=== PATIENT | male | born 1985 | race Caucasian/White ===

== ENCOUNTER 2017-09-30 15:01 | Emergency (ER) | payer SELFPAY ==
[2017-09-30 15:01] VITALS: BP 139/73; PULSE 89; RESP 18; TEMP 37; O2SAT 96; BMI 32.3
--- NOTE | 2017-09-30 15:13 | ED.DCSUM_ITS ---
- ER Visit Summary Date of Service: 09/30/17 Chief Complaint: Hemorrhoid History of Present Illness: The patient is a 32 M resents to the emergency department with hemorrhoid. Patient states that he noticed yesterday. He states he went to work he was lifting heavy boxes. When he got home it was more painful. He states today, he noticed that it was a hard blue bump. States he has never had one before. He denies any fevers or chills. Denies any trouble moving his bowels. He denies any other systemic symptoms. He has had no blood in his bowel movements. He has no history of inflammatory bowel disease. Physical Examination: Vital signs reviewed General: Well-nourished, well-developed Head: Normocephalic, atraumatic Eyes: Pupils equal and reactive, extraocular muscles intact Neck, supple, no lymphadenopathy Heart: Regular rate and rhythm Respiratory: No distress, clear bilaterally Abdomen: Soft, nontender, nondistended, no peritoneal signs Rectal exam: Patient has thrombosed hemorrhoid at the 3 o'clock position. There is no evidence of abscess. No active bleeding. Back: Nontender Extremities: Nontender, no edema, no cords Skin: Normal color no rash Neuro: Alert and oriented, no focal or lateralizing deficits Test Results: [] Emergency Department Course and Treatment: The patient does have evidence of a thrombosed hemorrhoid. I did feel that this would need incised and drained. The wound was anesthetized. It was opened and a small amount of clots was able to be removed. The patient had significant improvement of his comfort. He will be given a short course of analgesics and stool softeners. He is counseled on concerning symptoms and reasons to return. The patient will be discharged home. Treatment Plan: [] Disposition: Discharge Impression: 1. Thrombosed hemorrhoid with incision and drainage This note was generated with [employer] dictation software. It may contain incorrect words, spelling, and punctuation that were not noted in review of the chart prior to signing ED Disposition - Plan for ED Patient: Disposition: Home or Assisted Living Chief Complaint: Other, Pain/Inj Instructions: ED Hemorrhoids Prescriptions: Oxycodone HCl/Acetaminophen [Percocet 5/325] 1 tab PO Q6H PRN PRN 3 Days #12 tab PRN Reason: Pain Docusate Sodium [Colace] 100 mg PO DAILY #20 cap Referrals: Care Physician,No Primary [Primary Care Provider] -
[2017-09-30 16:03] VITALS: BP 126/75; PULSE 68; RESP 15; O2SAT 97
[2017-09-30] MEDS: Bupivacaine 0.25% 30 ML Vial OPERA.SITE (16:05)
== END 2017-09-30 16:07 | disposition home or self-care (01) ==
PROVIDERS: Emergency Provider Emergency Medicine
DX: K64.5 Perianal venous thrombosis (principal); Z90.89 Acquired absence of other organs
CPT/HCPCS: 46083; 99282